=== PATIENT | male | born 1960 | race Caucasian/White ===

== ENCOUNTER 2024-04-26 00:33 | Emergency (ER) | payer SELFPAY ==
[2024-04-26] MEDS: Proparacaine 0.5% Ophth Soln 15 ML Bottle EYERT STA (00:45)
[2024-04-26] MEDS: Ibuprofen 600 MG Tab PO ONE (00:48)
== END 2024-04-26 01:09 ==
LOC: MW.ED 00:33
DX: S09.90XA Unspecified injury of head, initial encounter (principal); M54.6 Pain in thoracic spine; M54.50 Low back pain, unspecified; Y04.0XXA Assault by unarmed brawl or fight, initial encounter; Z75.8 Other problems related to medical facilities and other health care
CPT/HCPCS: 99284; A9270; J3490

== ENCOUNTER 2024-06-15 08:41 | Emergency (ER) | payer SELFPAY ==
[2024-06-15 09:45] LABS: BASOPHILS ABSOLUTE AUTO 0.02 K/uL (0.00-0.20); BASOPHILS PERCENT AUTO 0.4 % (0.0-1.0); EOSINOPHILS ABSOLUTE AUTO 0.03 K/uL (0.00-0.45); EOSINOPHILS PERCENT AUTO 0.6 % (0.0-6.0); HEMATOCRIT 44.8 % (42.0-52.0); HEMOGLOBIN 15.8 g/dL (14.0-18.0); IMMATURE GRAN ABSOLUTE AUTO 0.02 K/uL (0.00-0.05); IMMATURE GRAN PERCENT AUTO 0.4 % (0.0-0.4); LYMPHOCYTES ABSOLUTE AUTO 1.46 K/uL (1.00-4.80); LYMPHOCYTES PERCENT AUTO 26.8 % (24.0-44.0); MEAN CORPUSCULAR HEMOGLOBIN 29.2 pg (28.0-32.0); MEAN CORPUSCULAR HGB CONC 35.3 g/dL (32.0-36.0); MEAN CORPUSCULAR VOLUME 82.8 fL (83.0-99.0); MEAN PLATELET VOLUME 10.3 fL (9.4-12.4); MONOCYTES ABSOLUTE AUTO 0.49 K/uL (0.00-0.80); NEUTROPHILS ABSOLUTE AUTO 3.42 K/uL (1.80-7.70); NEUTROPHILS PERCENT AUTO 62.8 % (41.0-71.0); PLATELET COUNT,PLT 150 K/uL (150-400); RED BLOOD CELL COUNT 5.41 M/uL (4.52-5.90); WHITE BLOOD CELL COUNT,WBC 5.44 K/uL (3.9-11.3)
[2024-06-15 10:01] LABS: A/G RATIO 0.8 (0.9-1.6); ALBUMIN 3.3 g/dL (3.4-5.0); BILIRUBIN TOTAL 0.5 mg/dL (0.2-1.0); CARBON DIOXIDE,CO2 23.6 mmol/L (21.0-32.0); CREATININE 1.1 mg/dL (0.8-1.3); EST CRCL DRUG DOSING (CG) 69.63 mL/min; POTASSIUM,K 3.5 mmol/L (3.5-5.1); PROTEIN TOTAL,TP 7.4 g/dL (6.4-8.2)
== END 2024-06-15 11:07 | disposition home or self-care (01) ==
LOC: MW.ED 08:41
DX: M25.512 Pain in left shoulder (principal); W19.XXXA Unspecified fall, initial encounter; Y99.0 Civilian activity done for income or pay
CPT/HCPCS: 36415; 71045; 71045-26; 73030-26-LT; 73030-LT; 80053; 84484; 85025; 93005; 99283; 99284

== ENCOUNTER 2024-07-06 09:21 | Emergency (ER) | payer SELFPAY | END 2024-07-06 11:05 | disposition home or self-care (01) | LOC: MW.ED 09:21 | DX: F43.9 Reaction to severe stress, unspecified (principal); R53.83 Other fatigue; R05.9 Cough, unspecified; Z75.8 Other problems related to medical facilities and other health care | CPT/HCPCS: 87428-QW; 99284 ==